=== PATIENT | male | born 1945 | race Caucasian/White ===

== ENCOUNTER → 2018-03-02 | Outpatient (CLI) | payer OTHER ==
[~2018-03-02] MED LIST: ADULT LOW DOSE81 MG; ATENOLOL 25MG T25 MG; BENTYL; BENTYL 10 MG CA10 M1 PO; CALCIUM 600 +1 EAC5; CARDURA2 MG; CHLORASEPTIC177 ML PO; CLOPIDOGREL75 MG PO; CYCLOBENZAPRINE10 MG PO; DIOVAN HCT 1601 EACH PO; DIOVAN160 MG PO; KEFLEX500 MG PO; LANOXIN 0.250.25 M1 PO; LIPITOR80 MG; LOSARTAN-HCTZ1 EACH PO; MICARDIS HCT 81 EACH; MULTIVITAMINS; NAPROSYN500 MG; NORCO 5-325 TA1 EACH PO; ZOCOR 20 MG TAB20 M1 PO
[2018-03-02 11:46] LABS: ALBUMIN 3.7 g/dL (3.4-5.0); ALKALINE PHOSPHATASE 74 U/L (46-116); ANION GAP 5 mmol/L (7-16); BUN 18 mg/dL (7-18); CALCIUM 8.6 mg/dL (8.5-10.1); CHLORIDE 102 mmol/L (98-107); CHOLESTEROL 150 mg/dL (<200); CO2 30 mmol/L (21-32); GLUCOSE 107 mg/dL (70-99); HDL CHOLESTEROL 81 mg/dL (>40); LDL CHOLESTEROL 63 mg/dL (<100); POTASSIUM 4.4 mmol/L (3.5-5.1); SGOT 32 U/L (15-37); SGPT 34 U/L (30-65); SODIUM 137 mmol/L (136-145); TC:HDL 1.9 Ratio (Not establshd); TOTAL BILIRUBIN 0.6 mg/dL (<0.1-1.0); TOTAL PROTEIN 7.2 g/dL (6.4-8.2); TRIGLYCERIDE 31 mg/dL (<150); VLDL 6 mg/dL (<40)
[2018-03-02 11:49] LABS: SERUM ASSESSMENT Clear
== END ==
LOC: M.LAB 10:38
PROVIDERS: Internal Medicine Cardiovascular Disease
DX: E78.2 Mixed hyperlipidemia (principal); I10 Essential (primary) hypertension; M81.0 Age-related osteoporosis without current pathological fracture; Z79.899 Other long term (current) drug therapy; Z72.89 Other problems related to lifestyle

== ENCOUNTER → 2018-10-05 | Outpatient (CLI) | payer OTHER ==
[2018-10-05 16:53] LABS: CHOLESTEROL 142 mg/dL (<200); HDL CHOLESTEROL 72 mg/dL (>40); LDL CHOLESTEROL 64 mg/dL (<100); TRIGLYCERIDE 33 mg/dL (<150); VLDL 7 mg/dL (<40)
[2018-10-05 16:54] LABS: SERUM ASSESSMENT Clear
== END ==
LOC: M.LAB 09:26
PROVIDERS: Internal Medicine Cardiovascular Disease
DX: E78.2 Mixed hyperlipidemia (principal)

== ENCOUNTER → 2018-11-21 | Outpatient (CLI) | payer OTHER ==
--- NOTE | 2018-11-21 11:19 | 2DMMODE ---
[place] [address] 2 D/M-MODE ECHOCARDIOGRAM Name: RONALD LEVY Room: [facility]#: [id number] Admission: 11/21/18 Attend Phys: Ayala Gaitan Discharge: Date of : 43 Date of Service: 11/21/18 1119 Report #: [id number] THIS REPORT FOR: //name// APPROVED REPORT Study performed: 11/21/2018 09:25:43 EXAM: Comprehensive 2D, Doppler, and color-flow Echocardiogram Patient Location: Out-Patient BSA: 1.77 HR: 62 bpm BP: 140/70 mmHg Other Information Study Quality: Good Indications Elevated BNP 2D Dimensions IVSd: 11.95 (7-11mm) LVOT Diam: 20.30 (18-24mm) LVDd: 35.86 mm PWd: 8.65 (7-11mm) Ascending Ao: 30.79 (22-36mm) LVDs: 26.02 (25-40mm) Aortic Root: 28.32 mm Volumes Left Atrial Volume (Systole) LA ESV Index: 30.60 mL/m2 Aortic Valve AoV Peak Kei.: 1.01 m/s AO Peak Gr.: 4.12 mmHg LVOT Max P.96 mmHg AO Mean Gr.: 2.28 mmHg LVOT Mean P.94 mmHg LVOT Max V: 0.70 m/s AO V2 VTI: 18.60 cm LVOT Mean V: 0.44 m/s ADEN (VTI): 2.55 cm2 LVOT V1 VTI: 14.66 cm Mitral Valve MV Decel. Time: 153.32 ms MV E Max Kei.: 1.01 m/s MV PHT: 44.46 ms MVA (PHT): 4.95 [place] [address] 2 D/M-MODE ECHOCARDIOGRAM Name: RONALD LEVY Room: [facility]#: [id number] Admission: 11/21/18 Attend Phys: Ayala Gaitan Discharge: Date of : 43 Date of Service: 11/21/18 1119 Report #: [id number] TDI E/Lateral E': 7.77 E/Medial E': 7.77 Medial E' Kei.: 0.13 m/s Lateral E' Kei.: 0.13 m/s Pulmonary Valve PV Peak Kei.: 0.84 m/s PV Peak Gr.: 2.82 mmHg Tricuspid Valve RAP Estimate: 5.00 mmHg TR Peak Gr.: 19.29 mmHg RVSP: 24.29 mmHg PA Pressure: 24.29 mmHg Left Ventricle The left ventricle is normal size. There is normal LV segmental wall motion. There is normal left ventricular wall thickness. Left ventricular systolic function is normal. The left ventricular ejection fraction is within the normal range. LVEF is 55-60%. The left ventricular diastolic function is normal. Right Ventricle The right ventricle is normal size. The right ventricular systolic function is normal. Atria Left atrium is mildly dilated. The right atrium size is normal. Aortic Valve The aortic valve is normal in structure. No aortic regurgitation is present. There is no aortic valvular stenosis. Mitral Valve The mitral valve is normal in structure. Trace mitral regurgitation. No evidence of mitral valve stenosis. Tricuspid Valve The tricuspid valve is normal in structure. Mild tricuspid regurgitation. estimate pa pressure 25 mm Hg Pulmonic Valve The pulmonary valve is normal in structure. Mild pulmonic regurgitation. Great Vessels The aortic root is normal in size. IVC [place] [address] 2 D/M-MODE ECHOCARDIOGRAM Name: RONALD LEVY Room: [facility]#: [id number] Admission: 11/21/18 Attend Phys: Ayala Gaitan Discharge: Date of : 43 Date of Service: 11/21/18 1119 Report #: [id number] collapses >50% with inspiration. Pericardium There is no pericardial effusion. <Conclusion> LVEF is 55-60%. Left atrium is mildly dilated. <ELECTRONICALLY SIGNED> By: Ozzy Root MD, [facility] 11/21/18 1119 1119 1119 Ozzy Root MD, [facility] /INF
== END ==
LOC: M.CRD 09:00
DX: I31.3 Pericardial effusion (noninflammatory) (principal); R79.89 Other specified abnormal findings of blood chemistry

== ENCOUNTER 2019-03-08 08:33 | Inpatient (IN) | payer OTHER ==
[2019-03-08] VITALS (11 sets, daily range): BP systolic 132–182; BP diastolic 48–88
[~2019-03-08] VITALS: Ht 170.2 cm; Wt 66.7 kg
[~2019-03-08 08:33] MED LIST changes: -ADULT LOW DOSE81 MG; +ADULT LOW DOSE81 MG PO; -ATENOLOL 25MG T25 MG; +ATENOLOL 25MG T25 MG PO; +CALCIUM 600 +1 EAC1 PO; -CARDURA2 MG; +CARDURA2 MG PO; +FIBER0.4 GM PO; +LIPITOR10 MG PO; -LIPITOR80 MG; +LIPITOR80 MG PO; +MIRALAX17 G1 PO; -MULTIVITAMINS; +MULTIVITAMINS PO; +XALATAN2.5 ML OPHTHALMIC
[2019-03-08 12:50] LABS: ABSOLUTE EOSINOPHILS 0.2 thou/uL (0.0-0.7); ABSOLUTE LYMPHOCYTES 1.7 thou/uL (0.8-5.3); ABSOLUTE MONOCYTES 0.7 thou/uL (0.0-1.2); ABSOLUTE NEUTROPHILS 3.5 thou/uL (1.6-8.1); BASOPHILS 0.5 %; EOSINOPHILS 3.4 %; HEMATOCRIT 40.3 % (42.0-52.0); HEMOGLOBIN 13.7 gm/dL (14.0-18.0); MCH 31.8 pg (26.0-34.0); MCHC 34.1 g/dL (28.0-37.0); MCV 93.1 fL (80.0-100.0); MONOCYTES 11.7 %; MPV 8.4 fl. (7.2-11.1); NUCLEATED RBCS 0 /100WBC; PLATELET COUNT* 199 thou/uL (150-400); POLYS 56.4 %; RBC 4.33 mil/uL (4.50-6.00); WBC 6.1 thou/uL (4.0-11.0)
[2019-03-08 12:58] LABS: CALCIUM 9.3 mg/dL (8.5-10.1); CREATININE 1.2 mg/dL (0.6-1.3)
--- NOTE | 2019-03-08 14:19 | EKG ---
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1945 Requested By: Edson Reid Order Number: [id number] [place] MD: Ozzy Root Measurements Intervals [place] Rate: 50 P: -45 MA: 180 QRS: 36 QRSD: 99 T: 44 QT: 425 QTc: 388 Interpretive Statements Sinus bradycardia Atrial premature complex Abnormal R-wave progression, early transition Baseline wander in lead(s) V1 Compared to ECG 07/26/2016 10:52:55 Atrial premature complex(es) now present Electronically Signed On 03-08-2019 14:19:43 CDT by Ozzy Root [email or web address] <ELECTRONICALLY SIGNED> By: Ozzy Root MD, FACC 03/08/19 1419 1245 1245 Ozzy Root MD, [facility] /EPI
--- NOTE | 2019-03-08 17:51 | NUR ---
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
[2019-03-09] VITALS (14 sets, daily range): BP systolic 118–152; BP diastolic 35–66
--- NOTE | 2019-03-09 00:33 | NUR ---
R ART LINE DC'D, HEMOSTASIS OBTAINED AT 2340 AFTER 5 MINUTES MANUAL PRESSURE. GAUZE AND TRANSPARENT DRESSING APPLIED. CO2 MONITOR ALSO DC'D PER ORDER.
--- NOTE | 2019-03-09 09:29 | NUR ---
3828 ASSUMED CARE OF PATIENT. PLEASE SEE DOCUMENTED ASSESSMENT. PT C/O NECK STIFFNESS AND SORE THROAT. UP TO CHAIR AND WARM BLANKET TO NECK.
--- NOTE | 2019-03-09 13:23 | NUR ---
DISCHARGE EDUCATION DONE. IV'S REMOVED. TO BE DISCHARGED HOME WITH CHILDREN
--- NOTE | 2019-03-10 15:36 | OP ---
[facility] [address] [place] [address] OPERATIVE REPORT Name: CAMRONALD LARSON Room: [address] IN M.R.#: [id number] Admission: 03/08/19 Attend Phys: Marlen Castellanos Discharge: 03/09/19 Date of : 43 Report #: [id number] THIS REPORT FOR: //name// CC: Ronald Reid DATE OF SERVICE: 03/08/2019 PREOPERATIVE DIAGNOSIS: Severe bilateral internal carotid artery stenosis, worse on the right than left. POSTOPERATIVE DIAGNOSIS: Severe bilateral internal carotid artery stenosis, worse on the right than left. PROCEDURES: 1. Right carotid endarterectomy with patch angioplasty. 2. Intraoperative ultrasound with interpretation. FINDINGS ON ULTRASOUND: 1. Normal waveform velocity identified on the internal common carotid arteries. 2. Patent flow identified in color flow imaging of the external carotid artery. 3. No flaps or defects identified on diaz-scale imaging. SURGEON: Dr. Reid. COMMUNITY ASSISTANT: KLAUDIA Chu. COMPLICATIONS: None. ESTIMATED BLOOD LOSS: 200 mL. SPECIMEN: Includes plaque. ANESTHESIA: General. INDICATIONS FOR PROCEDURE: The patient is a very pleasant 73-year-old white male who has severe bilateral internal carotid artery stenosis. This is worse on the right than the left. We plan for right carotid endarterectomy today. Informed consent was obtained from the patient with risks including but not limited to bleeding, infection, need for further surgery, pain, , heart attack, stroke. The patient understood these risks and was agreeable to proceed. DESCRIPTION OF PROCEDURE: The patient was taken to the OR and placed in supine position. General anesthesia was initiated, timeout was performed. The [address] [address] OPERATIVE REPORT Name: CAMRONALD LARSON Room: [address] IN ..#: [id number] Admission: 03/08/19 Attend Phys: Marlen Castellanos Discharge: 03/09/19 Date of : 43 Report #: [id number] patient's right neck and chest were prepped and draped in usual sterile fashion. I created a transverse incision in the patient's right neck. Sharp and blunt dissection were carried down along the anterior border of the sternocleidomastoid muscle. I divided the facial vein between ties and clips. I entered the carotid sheath. I controlled the common carotid artery as well as the branches of the internal and external carotid artery. I created a longitudinal arteriotomy on the common carotid artery into the internal carotid artery. I placed a 12 shunt without difficulty. I performed endarterectomy in standard fashion using a [place] elevator and a pair of pickups. I performed eversion endarterectomy of the external carotid artery. I tacked down the leading edge leading into the internal carotid artery. I took time to remove the bits and pieces of plaque from posterior wall. I used a bovine pericardial patch and a running 6-0 Prolene suture to close my arteriotomy. At the completion of the repair, there was adequate hemostasis and excellent blood flow into the internal and external carotid arteries. I performed intraoperative ultrasound. Please see the findings above. I corrected the heparin with protamine. I irrigated the wound bed with antibiotic saline, closed the wound in multiple layers using 2-0 Vicryl, 3-0 Vicryl and Monocryl for the skin. I did use some Cuate as well. We dressed the incision with Dermabond. The patient tolerated the procedure well and was taken alert and awake to recovery room in good condition neurologically intact. All needle, instrument counts were correct at the end of the case. <ELECTRONICALLY SIGNED> By: Aman Jeter DO 03/10/19 1536 1452 1518Edson Reid MD /nt
--- NOTE | 2019-03-12 14:07 | PATH ---
[facility] [address] [place] [address] PATHOLOGY RPT PROCEDURE Name: RONALD LEVY Room: [address] IN M.R.#: [id number] Admission: 03/08/19 Date of : 43 Discharge: 03/09/19 Report #: [id number] Path Case #: [id number] LCA Accession Number: [id number] . 01 Material submitted: . carotid body - PLAQUE RIGHT CAROTID. Modifiers: right . 01 Clinical history: . Bilateral carotid stenosis . 02 Diagnosis: Plaque right carotid: - Fibrointimal atherosclerotic plaque with prominent calcifications. (EMMY:karen; 03/12/2019) MBR 03/12/2019 1320 Local . 02 Electronically signed: . Cornelius Lynch MD, Pathologist NPI- [id number] . 01 Gross description: . . The specimen is received in formalin, labeled "Mindi, Ronald, plaque right carotid" and consists of a markedly calcified segment of rubbery yellow-walden tissue measuring 2.3 x 1.0 x 0.9 cm. Tub Wash Operator sections are submitted in A1 following decalcification. (SDY; 03/11/2019) SYU/SYU 03/11/2019 1203 Local . 02 Pathologist provided ICD-10: I65.21 . 02 CPT . 948808, 696961 Specimen Comment: A courtesy copy of this report has been sent to Specimen Comment: [phone], , , . Specimen Comment: Report sent to ,DR COTTON,DR HUSTON / DR CABEZAS Performed at: 01 [facility] [address], [place], [place] [id number] MD Milton Dowling MD Phone: [phone] Performed at: [address] [place] [address] [address], [place], [place] [id number] MD Cornelius Lynch MD Phone: [phone]
== END 2019-03-09 13:35 | disposition home or self-care (01) | DRG 27 ==
LOC: M.PRE 08:33 → M.ICU 11:53 → M.TBA 11:53 → M.ICU 16:20
PROVIDERS: Surgery Vascular Surgery; ADMIT Internal Medicine
DX: I65.23 Occlusion and stenosis of bilateral carotid arteries (principal); I10 Essential (primary) hypertension; E78.5 Hyperlipidemia, unspecified; Z96.641 Presence of right artificial hip joint; I25.2 Old myocardial infarction; Z95.5 Presence of coronary angioplasty implant and graft; Z90.49 Acquired absence of other specified parts of digestive tract; Z79.899 Other long term (current) drug therapy

== ENCOUNTER 2019-06-28 06:40 | Inpatient (IN) | payer OTHER ==
[2019-06-28] VITALS (14 sets, daily range): BP systolic 117–140; BP diastolic 40–68
[~2019-06-28] VITALS: Ht 170.2 cm; Wt 69.4 kg
[2019-06-28] MEDS ORDERED: LEVOXYL50 MCG PO (06:57)
[2019-06-28 07:41] LABS: ABSOLUTE EOSINOPHILS 0.2 thou/uL (0.0-0.7); ABSOLUTE LYMPHOCYTES 2.1 thou/uL (0.8-5.3); ABSOLUTE MONOCYTES 0.9 thou/uL (0.0-1.2); ABSOLUTE NEUTROPHILS 3.4 thou/uL (1.6-8.1); BASOPHILS 0.5 %; EOSINOPHILS 2.4 %; HEMATOCRIT 40.5 % (42.0-52.0); HEMOGLOBIN 13.7 gm/dL (14.0-18.0); MCH 31.1 pg (26.0-34.0); MCHC 33.7 g/dL (28.0-37.0); MCV 92.1 fL (80.0-100.0); MONOCYTES 13.3 %; MPV 10.3 fl. (7.2-11.1); NUCLEATED RBCS 0 /100WBC; PLATELET COUNT* 202 thou/uL (150-400); POLYS 51.8 %; RDW-CV 12.8 % (10.5-14.5); WBC 6.5 thou/uL (4.0-11.0)
[2019-06-28 07:44] LABS: CALCIUM 9.4 mg/dL (8.5-10.1); CREATININE 1.2 mg/dL (0.6-1.3); POTASSIUM 3.9 mmol/L (3.5-5.1)
[2019-06-29] VITALS (10 sets, daily range): BP systolic 115–153; BP diastolic 39–61
[2019-06-29 03:35] LABS: HEMOGLOBIN 13.1 gm/dL (14.0-18.0); MCH 31.4 pg (26.0-34.0); MCHC 34.4 g/dL (28.0-37.0); MCV 91.2 fL (80.0-100.0); MPV 9.2 fl. (7.2-11.1); RBC 4.17 mil/uL (4.50-6.00); RDW-CV 12.9 % (10.5-14.5); WBC 10.7 thou/uL (4.0-11.0)
[2019-06-29 03:49] LABS: CALCIUM 8.3 mg/dL (8.5-10.1); CREATININE 1.2 mg/dL (0.6-1.3)
[2019-06-29] MEDS ORDERED: NORCO 5-325 TA1 EAC1 PO (08:59)
--- NOTE | 2019-07-02 15:13 | PATH ---
[facility] [address] [place] [address] PATHOLOGY RPT PROCEDURE Name: RONALD OBREGON Room: [address] IN M.R.#: [id number] Admission: 06/28/19 Date of : 43 Discharge: 06/29/19 Report #: [id number] Path Case #: [id number] LCA Accession Number: [id number] . 01 Material submitted: . carotid body - LEFT CAROTID PLAQUE. Modifiers: left . 01 Clinical history: . Bilateral carotid stenosis . 02 Diagnosis: Left carotid plaque: - Fibrointimal atherosclerotic plaque with prominent calcification. . (EMMY:mami; 07/02/2019 QMS 07/02/2019 1313 Local . 02 Electronically signed: . Cornelius Lynch MD, Pathologist NPI- [id number] . 01 Gross description: . The specimen is received in formalin, labeled "Ronald Ob[place], left carotid plaque" and consists of a rubbery segment of yellow-walden tissue showing an occluded stenotic lumen measuring 2.4 x 1.0 x 0.8 cm. Patient Escort sections are submitted in A1 following decalcification. (SDY; 07/01/2019) SYU/SYU 07/01/2019 1045 Local . 02 Pathologist provided ICD-10: I65.22 . 02 CPT . 868846, 931366 Specimen Comment: A courtesy copy of this report has been sent to [phone] Specimen Comment: [phone], Specimen Comment: Report sent to , and Performed at: 01 [facility] [address], [place], [place] [id number] MD Milton Dowling MD Phone: [phone] Performed at: [address] [place] [address] [place], [place] [id number] MD Cornelius Lynch MD Phone: [phone]
--- NOTE | 2019-07-02 16:29 | OP ---
[facility] [address] [place] [address] OPERATIVE REPORT Name: CAMRONALD LARSON Room: [address] IN M.R.#: [id number] Admission: 06/28/19 Attend Phys: Marlen Castellanos Discharge: 06/29/19 Date of : 43 Report #: [id number] THIS REPORT FOR: //name// CC: Ronald Church DATE OF SERVICE: 06/28/2019 PREOPERATIVE DIAGNOSIS: Severe left internal carotid artery stenosis. POSTOPERATIVE DIAGNOSIS: Severe left internal carotid artery stenosis. PROCEDURES: 1. Left carotid endarterectomy with patch angioplasty. 2. Intraoperative ultrasound with interpretation. FINDINGS ON ULTRASOUND: 1. Normal waveform velocity identified in the common and internal carotid arteries. 2. No flaps or defects identified in diaz-scale imaging. 3. Patent flow identified in external carotid artery on color flow imaging. SURGEON: Edson Reid MD INVENTORY TRANSCRIBER: Dr. Tiaan Leon. COMPLICATIONS: None. ESTIMATED BLOOD LOSS: 50 mL. SPECIMEN: Includes plaque. ANESTHESIA: General. INDICATIONS FOR PROCEDURE: The patient is a very pleasant 73-year-old white male who had severe bilateral internal carotid artery stenosis. I previously performed a right carotid endarterectomy several months ago. He did well from this. We planned left carotid endarterectomy today. Informed consent was obtained with risks including but not limited to bleeding, infection, need for further surgery, pain, , heart attack, stroke all discussed. We also discussed cranial nerve injury. The patient understood these risks and was agreeable to proceed. DESCRIPTION OF PROCEDURE: The patient was taken to the OR and placed in supine position. General anesthesia was initiated, timeout was performed. The [address] [address] OPERATIVE REPORT Name: CAMRONALD Room: [address] IN ..#: [id number] Admission: 06/28/19 Attend Phys: Marlen Castellanos Discharge: 06/29/19 Date of : 43 Report #: [id number] patient's left neck and chest were prepped and draped in the usual sterile fashion. I created a transverse incision in the patient's left neck. Sharp and blunt dissections were carried down along the anterior border of the sternocleidomastoid muscle. I divided the facial vein between ties and clips. I entered the carotid sheath. I infused 1% lidocaine into the carotid bulb. I then dissected out the common carotid artery as well as the branches of the internal and external carotid artery. I heparinized the patient at this point in time. I clamped the carotid arteries. I created a longitudinal arteriotomy from the common carotid artery onto the internal carotid artery. I placed a 12 shunt without difficulty. I used a [place] elevator and a pair of pickups to perform the endarterectomy in standard fashion. I performed eversion endarterectomy of the external carotid artery. I got a feathered edge leading into the internal carotid artery. There was no flap that required any tacking. I took my time to remove the bits and pieces of plaque from the posterior wall. I used a bovine pericardial patch and a running 6-0 Prolene suture to close the defect in the artery. At completion of the repair, there was adequate hemostasis and excellent blood flow into the internal and external carotid artery. I performed intraoperative ultrasound with findings as noted above. I corrected the heparin with protamine. I controlled the bleeding as needed with electrocautery, ties, clips and Cuate. I closed the wound in multiple layers using 3-0 Vicryl and Monocryl for the skin. Incision was dressed with Dermabond. The patient tolerated the procedure well and was taken alert and awake to recovery room in good condition, neurologically intact. <ELECTRONICALLY SIGNED> By: Connor Gannon DO 07/02/19 1629 1013 1053Edson Reid MD /rosmery
== END 2019-06-29 10:11 | disposition home or self-care (01) | DRG 38 ==
LOC: M.TBA 06:40 → M.PRE 06:41 → M.ICU 11:15 → M.PRE 12:46 → M.ICU 06-29 10:11
PROVIDERS: Surgery Vascular Surgery; ADMIT Internal Medicine
PROC: 03CL0ZZ Extirpation of Matter from Left Internal Carotid Artery, Open Approach (ICD-10-PCS; principal; 2019-06-28)
PROC: B347ZZ3 Ultrasonography of Left Internal Carotid Artery, Intravascular (ICD-10-PCS; principal; 2019-06-28)
PROC: 03UL0KZ Supplement Left Internal Carotid Artery with Nonautologous Tissue Substitute, Open Approach (ICD-10-PCS; principal; 2019-06-28)
DX: I65.22 Occlusion and stenosis of left carotid artery (principal); N17.9 Acute kidney failure, unspecified; E78.5 Hyperlipidemia, unspecified; I10 Essential (primary) hypertension; Z96.641 Presence of right artificial hip joint; E86.0 Dehydration; E03.9 Hypothyroidism, unspecified; K59.00 Constipation, unspecified; M19.90 Unspecified osteoarthritis, unspecified site; I25.10 Atherosclerotic heart disease of native coronary artery without angina pectoris; Z95.5 Presence of coronary angioplasty implant and graft; Z79.82 Long term (current) use of aspirin; Z79.899 Other long term (current) drug therapy; I25.2 Old myocardial infarction; Z90.49 Acquired absence of other specified parts of digestive tract; Z86.73 Personal history of transient ischemic attack (TIA), and cerebral infarction without residual deficits; Z87.891 Personal history of nicotine dependence